=== PATIENT | male | born 1955 | race Caucasian/White ===

== ENCOUNTER 2017-04-02 08:27 | Emergency (ER) | payer OTHER ==
[2017-04-02] MEDS ORDERED: Sodium Chloride 0.9% 1,000 ML ONE (08:48)
--- NOTE | 2017-04-02 09:30 | RAD ---
RADIOGRAPH RIGHT WRIST 3 VIEWS: Date: 04/02/17 HISTORY: 61-year-old male with post-traumatic pain and swelling of right wrist after fall. FINDINGS: No fracture is identified. If there is snuffbox tenderness that suggests an occult scaphoid fracture , then the general recommendation is immobilization and follow-up imaging in 5-10 days. There are se corey degenerative changes at the first CMC joint. There are mild to moderate degenerative changes at the STT complex. No subluxation or dislocation. Atherosclerotic calcification of radial and ulnar a rteries. IMPRESSION: 1. No acute fracture identified. 2. Severe osteoarthrosis of the first carpometacarpal joint. POS: [facility]
== END 2017-04-02 10:15 | disposition home or self-care (01) ==
LOC: NAV ERS 08:27
DX: S63.501A Unspecified sprain of right wrist, initial encounter (principal); E78.5 Hyperlipidemia, unspecified; Z87.891 Personal history of nicotine dependence; Z86.73 Personal history of transient ischemic attack (TIA), and cerebral infarction without residual deficits; Z79.891 Long term (current) use of opiate analgesic; Z79.01 Long term (current) use of anticoagulants; Z79.899 Other long term (current) drug therapy; W19.XXXA Unspecified fall, initial encounter
CPT/HCPCS: 96360; J7050

== ENCOUNTER 2018-02-27 09:38 | Emergency (ER) | payer MEDICAID, OTHER, SELFPAY ==
[2018-02-27 10:53] LABS: #Basophils 0.1 thou/uL (0.0-0.2); #Eosinphils 0.1 thou/uL (0.0-0.7); #Monocytes 0.5 thou/uL (0.11-0.59); #Neutrophils 3.6 thou/uL (1.40-6.50); %Basophils 1.3 % (0.0-1.0); %Eosinophils 1.1 % (0.0-10.0); %Lymphocytes 31.6 % (21.0-51.0); %Monocytes 7.9 % (0.0-10.0); %Neutrophils 58.1 % (42.0-75.0); Mean Corpuscular HGB CONC 34.5 g/dL (32.0-36.0); Mean Corpuscular Hemoglobin 32.1 pg (27.0-31.0); Mean Platelet Volume 9.6 fL (7.4-10.4); Platelet Count 201 thou/uL (130-400); RBC Distribution Width 10.8 % (11.5-14.5); Red Blood Cell (RBC) Count 4.98 mill/uL (4.70-6.10); White Blood Cell (WBC) Count 6.2 thou/uL (4.8-10.8)
[2018-02-27 11:07] LABS: CKMB 1.4 ng/mL (0-6.6); Troponin I Less than 0.010 ng/mL (< 0.028)
[2018-02-27 11:12] LABS: ALT (SGPT) 70 U/L (8-55); AST (SGOT) 63 U/L (5-34); Albumin 3.9 g/dL (3.4-4.8); Alkaline Phosphatase 122 U/L (40-150); Anion Gap 19 mmol/L (10-20); BUN (Urea Nitrogen) 12 mg/dL (8.4-25.7); Bilirubin, Total 0.8 mg/dL (0.2-1.2); CK (CPK) 105 U/L (30-200); Calc. Creatinine Clearance 0 mL/min (70-130); Calcium 9.7 mg/dL (7.8-10.44); Carbon Dioxide 23 mmol/L (23-31); Chloride 102 mmol/L (98-107); Estimated GFR-MDRD Greater than 90; Globulin 4.6 g/dL (2.4-3.5); Glucose 101 mg/dL (80-115); Potassium 4.7 mmol/L (3.5-5.1); Protein, Total 8.5 g/dL (5.8-8.1); Sodium 139 mmol/L (136-145)
--- NOTE | 2018-02-27 11:18 | CT ---
CT BRAIN NONCONTRAST: DATE: 02/27/18 TIME: 1011 HOURS HISTORY: 62-year-old male with history of old stroke. Altered mental status. COMPARISON: 03/13/17 CT and 03/15/17 MRI. FINDINGS: Previously, there were two ongoing acute or subacute infarctions on prior studies, one involving much of the left basal ganglia, left caudate nucleus, and adjacent left periventricular white matter in t he [place] radiata. The other was in the left parietal lobe. Both were moderate sized. Now, they have become regions of encephalomalacia. This is associated with ex vacuo dilation of the anterior aspect of left lateral ventricle. There is no acute intra-axial or extra-axial hemorrhage, mass effect, midl ine shift, or extra-axial fluid collection. There is Wallerian degeneration of the left cerebral pedu ncle. Additional tiny old lacunar infarctions in the bilateral basal ganglia. The calvarium is intact . IMPRESSION: 1. No acute intracranial findings. 2. Two moderate sized old infarctions: left corpus striatum (lenticulostriate branch territory of le ft middle cerebral artery) and left parietal (left middle cerebral artery territory). 3. Associated Wallerian degeneration of left cerebral peduncle. AVERY Montesinos POS: [facility]
[2018-02-27] MEDS ORDERED: cefTRIAXone\\ROCEPHIN 1 GM VIAL ONE (11:29)
[2018-02-27] MEDS ORDERED: Sodium Chloride 0.9% 1,000 ML ONE (11:29)
[2018-02-27] MEDS ORDERED: Sodium Chloride 0.9% 100 ML ONE (11:29)
[2018-02-27] MEDS ORDERED: Sodium Chloride 0.9% 500 ML ONE (11:51)
--- NOTE | 2018-02-27 12:30 | RAD ---
LEFT FOOT 3 VIEWS: Date: 02/27/18 HISTORY: Left foot pain. FINDINGS: Soft tissue swelling and ulceration are apparent along the lateral aspect of the little toe. Lisfranc joint alignment is anatomic. Plantar heel spur is evident at the inferior aspect of the calcaneus. P es planus is visible on the lateral view. Scattered osteophytosis. No acute fracture, dislocation, or aggressive osseous erosions. IMPRESSION: 1. Mild osteoarthritic changes. 2. Soft tissue swelling lateral aspect of the forefoot. No underlying ossific destruction is evident . POS: [facility]
== END 2018-02-27 13:00 | disposition short-term general hospital (02) ==
LOC: NAV ERS 09:38
DX: L03.116 Cellulitis of left lower limb (principal); R47.1 Dysarthria and anarthria; Z86.73 Personal history of transient ischemic attack (TIA), and cerebral infarction without residual deficits; E78.5 Hyperlipidemia, unspecified; F41.9 Anxiety disorder, unspecified; Z87.891 Personal history of nicotine dependence; Z79.899 Other long term (current) drug therapy
CPT/HCPCS: 36416; 70450; 80053; 82550; 82553; 84484; 85025; 85652; 86140; 93005; 96365; 96367; J0696; J3370; J7050